=== PATIENT | male | born 1965 | race Caucasian/White ===

== ENCOUNTER 2017-03-28 00:17 | Observation (INO) | payer MEDICARE ==
[~2017-03-28] VITALS: Ht 182.9 cm; Wt 105.4 kg
[2017-03-28 00:50] LABS: HEMOGLOBIN 14.1 g/dL (13.7-18.0); WHITE BLOOD COUNT 10.8 x10^3/uL (3.4-10)
[2017-03-28] MEDS ORDERED: LORazepam 1MG TABLET PO ONE (01:00)
[2017-03-28 01:04] LABS: ACETAMINOPHEN < 2 mcg/mL (10-30); BLOOD UREA NITROGEN 11 mg/dL (7-18)
[2017-03-28] MEDS ORDERED: LORazepam 1MG TABLET ONE (01:19)
[2017-03-28] MEDS ORDERED: ACETAMINOPHEN 325 MG TABLET PO PRN (01:30)
[2017-03-28 01:42] LABS: DAU SCREEN DISCLAIMER
[2017-03-28 01:57] VITALS: BP 130/87
[2017-03-28 08:08] VITALS: BP 142/83
[2017-03-28] MEDS: LORazepam 1MG TABLET PO PRN ×2 (08:14→12:15)
[2017-03-28] MEDS ORDERED: ONDANSETRON ODT 4 MG PO PRN (09:30)
== END 2017-03-28 13:30 ==
LOC: ED 01:20 → EDIP 01:38 → 3E 01:55
PROVIDERS: ADMIT Family Medicine; ATTEND Family Medicine
DX: R45.851 Suicidal ideations (principal); F43.10 Post-traumatic stress disorder, unspecified; G89.29 Other chronic pain; M54.5 Low back pain; F12.90 Cannabis use, unspecified, uncomplicated; Z59.0 Homelessness; Z91.5 Personal history of self-harm
CPT/HCPCS: 36415; 80048; 80307; 80329; 82040; 85025; 99285; G0378; Q0162; G0479; G0480

== ENCOUNTER 2017-04-07 14:37 | Emergency (ER) | payer MEDICARE ==
[~2017-04-07] VITALS: Ht 182.9 cm; Wt 100.0 kg
[2017-04-07] MEDS ORDERED: IBUPROFEN 200 MG TABLET PO ONE (15:30)
[2017-04-07] MEDS ORDERED: IBUPROFEN 200 MG TABLET ONE ×2 (15:38→15:39)
[2017-04-07 15:49] VITALS: BP 155/83
== END 2017-04-07 16:02 | disposition home or self-care (01) ==
LOC: ED 15:56
DX: J02.8 Acute pharyngitis due to other specified organisms (principal)
CPT/HCPCS: 87081; 87880; 93005; 99285

== ENCOUNTER 2017-04-13 16:46 | Emergency (ER) | payer MEDICARE ==
[~2017-04-13] VITALS: Ht 182.9 cm; Wt 105.1 kg
[2017-04-13] MEDS ORDERED: HYDROcodone/APAP 5/325 TABLET PO STA (18:00)
[2017-04-13] MEDS ORDERED: HYDROcodone/APAP 5/325 TABLET ONE (18:09)
[2017-04-13 18:40] VITALS: BP 160/103
[2017-04-13] MEDS ORDERED: DIAZEPAM 5 MG TABLET ONE (19:00)
[2017-04-13] MEDS ORDERED: DIAZEPAM 5 MG TABLET PO ONE (19:00)
== END 2017-04-13 19:23 | disposition home or self-care (01) ==
LOC: ED 18:57
DX: S39.012A Strain of muscle, fascia and tendon of lower back, initial encounter (principal); F43.10 Post-traumatic stress disorder, unspecified; X58.XXXA Exposure to other specified factors, initial encounter; Y93.89 Activity, other specified; Y92.89 Other specified places as the place of occurrence of the external cause; Y99.9 Unspecified external cause status
CPT/HCPCS: 72110; 99284